=== PATIENT | male | born 1955 | race Caucasian/White ===

== ENCOUNTER 2021-01-03 12:16 | Outpatient (CLI) | payer BC | END 2021-01-03 12:17 | disposition home or self-care (01) | LOC: CSHCT 12:16 | PROVIDERS: ATTEND Anesthesiology Pain Medicine | DX: M51.17 Intervertebral disc disorders with radiculopathy, lumbosacral region (principal); M48.07 Spinal stenosis, lumbosacral region; M47.26 Other spondylosis with radiculopathy, lumbar region | CPT/HCPCS: 72131 ==

== ENCOUNTER 2025-06-05 13:12 | Outpatient (CLI) | payer MEDICARE, BC ==
[2025-06-05 13:53] LABS: Hematocrit 35.9 % (38.8-50.0); Hemoglobin 11.5 g/dL (13.5-17.5); Mean Corpuscular Hemoglobin 30.4 pg (27.0-33.0); Mean Corpuscular Volume 95.0 fL (81.2-95.1); Platelet Count 168 10x3/uL (150-450); Red Blood Cell (RBC) Count 3.78 10x6/uL (4.32-5.72); White Blood Cell (WBC) Count 11.20 10x3/uL (3.5-10.5)
[2025-06-05 14:24] LABS: Anion Gap 15 mmol/L (10-20); BUN (Urea Nitrogen) 15 mg/dL (8.4-25.7); Calc. Creatinine Clearance 0 mL/min (70-130); Calcium 8.6 mg/dL (7.8-10.44); Carbon Dioxide 23 mmol/L (23-31); Chloride 101 mmol/L (98-107); Glucose 288 mg/dL (80-115); Potassium 4.0 mmol/L (3.5-5.1); Sodium 135 mmol/L (136-145)
== END 2025-06-05 13:13 | disposition home or self-care (01) ==
LOC: CSHLAB 13:12
PROVIDERS: ATTEND Surgery
DX: Z01.818 Encounter for other preprocedural examination (principal); C80.0 Disseminated malignant neoplasm, unspecified; C77.2 Secondary and unspecified malignant neoplasm of intra-abdominal lymph nodes; C78.7 Secondary malignant neoplasm of liver and intrahepatic bile duct; I10 Essential (primary) hypertension
CPT/HCPCS: 36415; 80053; 83615; 84439; 84443; 84550; 85027; 93005; 93010

== ENCOUNTER 2025-06-07 05:41 | Day surgery (SDC) | payer MEDICARE, BC ==
[2025-06-05 13:30] VITALS: BMI 28.8
[2025-06-07] MEDS ORDERED: CEFAZOLIN 2 GM VIAL ONE (06:26)
[2025-06-07] MEDS ORDERED: Bupivacaine HCl 0.5%/Epinephrine 1:200,000/PF 30 ml Vial ONE (06:26)
[2025-06-07] MEDS ORDERED: PROPOFOL 40 ML ONE (06:46)
[2025-06-07] MEDS ORDERED: Lidocaine 1% PF 5 ML VIAL ONE (06:47)
[2025-06-07] MEDS ORDERED: Ondansetron PF 4 MG/2 ML Vial ONE (07:24)
== END 2025-06-07 08:45 | disposition home or self-care (01) ==
LOC: CSHSDC 05:41
PROVIDERS: ATTEND Surgery
PROC: 0JH60WZ Insertion of Totally Implantable Vascular Access Device into Chest Subcutaneous Tissue and Fascia, Open Approach (ICD-10-PCS; principal; 2025-06-07)
DX: C80.0 Disseminated malignant neoplasm, unspecified (principal); C78.7 Secondary malignant neoplasm of liver and intrahepatic bile duct; I12.9 Hypertensive chronic kidney disease with stage 1 through stage 4 chronic kidney disease, or unspecified chronic kidney disease; N18.31 Chronic kidney disease, stage 3a; E11.22 Type 2 diabetes mellitus with diabetic chronic kidney disease; E78.5 Hyperlipidemia, unspecified; Z87.891 Personal history of nicotine dependence; Z79.899 Other long term (current) drug therapy
CPT/HCPCS: 36561; 71045; J1642; J2405; J2704; J3010; A6258; C1788